=== PATIENT | male | born 1950 | race Caucasian/White ===

== ENCOUNTER 2022-11-08 11:24 | Outpatient (CLI) | payer BC | END 2022-11-08 11:25 | disposition home or self-care (01) | LOC: SCSRAD 11:24 | PROVIDERS: ATTEND Physical Therapist | DX: M25.552 Pain in left hip (principal); M54.50 Low back pain, unspecified; R26.89 Other abnormalities of gait and mobility; M16.12 Unilateral primary osteoarthritis, left hip ==